=== PATIENT | male | born 1955 | race Caucasian/White ===

== ENCOUNTER → 2016-11-05 | Outpatient (CLI) | payer OTHER ==
[~2016-11-05] MED LIST: ATARAX,VISTARIL25 MG PO; AVEENO DAILY M TP; BENADRYL25 MG PO; LO-DOSE ASPIRIN81 M1 PO; MEDROL DOSEPAK4 MG PO; NORVASC5 MG PO; PRAVACHOL40 MG PO; PREDNISONE50 MG PO; ULTRAM50 MG PO; ZESTORETIC 20-1 EAC2 PO
== END | disposition home or self-care (01) ==
DX: M16.12 Unilateral primary osteoarthritis, left hip (principal); R26.2 Difficulty in walking, not elsewhere classified; M25.552 Pain in left hip; M25.652 Stiffness of left hip, not elsewhere classified; M62.81 Muscle weakness (generalized)
CPT/HCPCS: 97110 GP; 97150 GO; 97161 GP; 97165 GO; G8978 GP; G8979 GP; G8980 GP; G8987 GO; G8988 GO; G8989 GO

== ENCOUNTER 2016-12-02 22:09 | Inpatient (IN) | payer OTHER ==
[~2016-12-02] VITALS: Ht 160 cm; Wt 86.7 kg
[2016-12-03 09:37] VITALS: BP 133/77
[2016-12-03 17:01] VITALS: BP 113/68
[2016-12-03 20:11] VITALS: BP 125/70
[2016-12-03 21:05] LABS: HEMATOCRIT 39.3 % (38.0-50.0); MCH 29.2 PG (29.0-34.0); MCHC 33.1 G/DL (30.0-36.0); MCV 88.3 FL (86-99); PLATELET COUNT 230 K/uL (156-360); RBC DIS.WIDTH-CV 13.4 % (11.8-14.6); RBC DIS.WIDTH-SD 43.7 % (39-53); RED BLOOD COUNT 4.45 M/uL (4.00-5.50); WHITE BLOOD COUNT 12.3 K/uL (4.1-10.2)
[2016-12-03 23:48] VITALS: BP 106/55
[2016-12-04 04:16] VITALS: BP 105/57
[2016-12-04 05:50] LABS: HEMATOCRIT 39.5 % (38.0-50.0)
[2016-12-04 06:10] LABS: ANION GAP 7 MEQ/L (2-14); CHLORIDE 107 MEQ/L (99-109); GFR ESTIMATE (CALCULATED) > 59 mL/min/; GLUCOSE 106 mg/dL (70-99); POTASSIUM 4.3 MEQ/L (3.7-5.4); SAMPLE HEMOLYSIS CHECK 0; SAMPLE ICTERIC CHECK 0; SAMPLE LIPEMIA CHECK 0; SODIUM 138 MEQ/L (136-147); UREA NITROGEN (BUN) 13 mg/dL (9-23)
[2016-12-04 11:43] VITALS: BP 108/59
[2016-12-04 15:38] VITALS: BP 104/58
[2016-12-04 19:51] VITALS: BP 96/52
[2016-12-05] VITALS (8 sets, daily range): BP systolic 101–126; BP diastolic 54–69
[2016-12-06] MEDS ORDERED: LIDOCAINE1 EACH TD (06:49)
[2016-12-06] MEDS ORDERED: LOVENOX40 MG/0.4 SC (06:51)
[2016-12-06] MEDS ORDERED: ENDOCET 5-3251 EACH PO (06:51)
[2016-12-06 08:26] VITALS: BP 132/60
== END 2016-12-06 14:06 | DRG 470 ==
LOC: ENRESERV 22:09 → 3EAST 12-03 08:54 → 2SOUTH 12-03 08:54 → 3WEST 12-03 08:54 → 2SOUTH 12-03 14:30 → 3WEST 12-03 16:29 → ENRESERV 12-05 07:12 → 3EAST 12-05 16:27
PROVIDERS: Orthopaedic Surgery
PROC: 0SRB0JZ Replacement of Left Hip Joint with Synthetic Substitute, Open Approach (ICD-10-PCS; principal; 2016-12-03)
DX: M16.12 Unilateral primary osteoarthritis, left hip (principal); I10 Essential (primary) hypertension; E78.00 Pure hypercholesterolemia, unspecified; R11.0 Nausea; R42 Dizziness and giddiness
CPT/HCPCS: 71010; 73501; 80048; 85014; 85018; 85027; 97530 GO; 97530 GP; C1776; J0690; J1650; J2250; J2405; J3010; J7030; J7050